=== PATIENT | female | born 1990 | race Caucasian/White ===

== ENCOUNTER 2019-06-12 04:04 | Emergency (ER) | payer SELFPAY ==
[2019-06-12 04:14] VITALS: BP 112/79; PULSE 90; TEMP 98.4; BMI 28.3
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
== END 2019-06-12 05:35 | disposition left against medical advice (07) ==
LOC: JER 04:04
DX: S00.81XA Abrasion of other part of head, initial encounter (principal); S40.012A Contusion of left shoulder, initial encounter; Y04.2XXA Assault by strike against or bumped into by another person, initial encounter; Y93.89 Activity, other specified; Y92.89 Other specified places as the place of occurrence of the external cause; Y99.8 Other external cause status; Y07.01 Husband, perpetrator of maltreatment and neglect
CPT/HCPCS: 99281-25